=== PATIENT | male | born 1990 | race Caucasian/White ===

== ENCOUNTER 2017-08-26 13:20 | Emergency (ER) | payer OTHER ==
[~2017-08-26] VITALS: Ht 193 cm; Wt 90.9 kg
[2017-08-26 13:24] VITALS: TEMP 36.6; Ht 193 cm; Wt 90.9 kg
[2017-08-26] MEDS ORDERED: LIDOCAINE HCL 2% VISC SOLN 20 ML UDC MT STA (13:42)
[2017-08-26] MEDS ORDERED: SODIUM CHLORIDE 0.9% 1000ML 1,000 ML IV STA (13:42)
[2017-08-26] MEDS ORDERED: ONDANSETRON INJ 2 MG/ML 2 ML VIAL IV STA ×2 (13:42→15:15)
[2017-08-26] MEDS ORDERED: MoRPHine SULFATE 2 MG/ML CARP IV STA (13:42)
[2017-08-26] MEDS ORDERED: SODIUM CHLORIDE 0.9% 1000ML 1,000 ML IV ONE (13:42)
[2017-08-26] MEDS ORDERED: ALUMINUM/MAGNESIUM SUSP 30 ML UDC PO STA (13:42)
--- NOTE | 2017-08-26 13:48 | EMERGENCY ROOM VISIT NOTE ---
History Report prepared by Lenny: Abebe Wagner Under the Supervision of: Dr. Erasmo Moore M.D. First contact with patient: 13:30 Chief Complaint: GI ASSESSMENT Stated Complaint: ABD PAIN, VOMITING,BLOOD IN VOMIT Nursing Triage Summary: pt reports vomitting blood and has 10/10 upper abd pain. pt reports he was on ompeprazole but stopped taking it for awhile and then started taking it again. History of Present Illness The patient is a 26 year old male who presents to the Emergency Room with complaints of constant epigastric pain beginning a couple of days ago. He rates his pain as a 10/10 in severity. The patient states he has a history of peptic ulcers and H. pylori. He reports he has had four endoscopies which showed three different ulcers. The patient is accompanied by his friend who states the patient has not been taking PPIs because he has not had a prescription for a while. He reports he has not been to a physician in a while. The patient states he has been experiencing epigastric pain for the last couple of days. The patient's friend states the patient was driving here to help her move and was vomiting blood the whole way. He notes he has also been experiencing blood in his stool. The patient states whenever he goes to stand up he becomes lightheaded and dizzy. The patient states he has been taking Ibuprofen for his symptoms without any relief. He denies chest pain and shortness of breath. The patient reports a history of a nephrectomy. Source of History: patient Onset: a couple of days ago Position: abdomen (epigastric) Symptom Intensity: 10/10 Timing: constant Modifying Factors (Relieving): ibuprofen Associated Symptoms: + vomiting (blood), No chest pain, No SOB Note: Associated symptoms: blood in stool, lightheaded and dizzy when standing up. Review of Systems See HPI for pertinent positives & negatives. A total of 10 systems reviewed and were otherwise negative. Past Medical & Surgical Medical Problems: (1) H. pylori infection (2) Stomach ulcer Surgical Problems: (1) S/p nephrectomy Old medical records were reviewed. Nurse's notes were reviewed and I agree with. Family History Patient reports no known family medical history. Social History Smoking Status: Never Smoker Marital Status: single Occupation Status: employed Current/Historical Medications Scheduled Omeprazole (Prilosec), 20 MG PO DAILY Omeprazole (Prilosec), 1 CAP PO DAILY Ranitidine (Zantac), 150 MG PO BID Allergies Coded Allergies: Amoxicillin (Verified Adverse Reaction, Severe, HIGH FEVER, 08/26/17) Physical Exam Vital Signs Date Time Temp Pulse Resp B/P (MAP) Pulse Ox O2 Delivery O2 Flow Rate FiO2 08/26/17 16:52 64 16 143/78 100 Room Air 08/26/17 15:41 61 16 147/87 100 Room Air 08/26/17 14:19 63 18 121/75 100 Room Air 08/26/17 13:24 36.6 87 22 137/92 100 Room Air Physical Exam General: Uncomfortable appearing middle aged male complaining of abdominal pain. HEENT: Normal cephalic atraumatic. Pupils are equal round and reactive to light. Extraocular movements are intact. Oropharynx is pink with moist mucous membranes. No swelling of the mouth lips or tongue. Neck: Supple with a midline trachea. No meningeal signs or stiffness, no JVD or bruits. No Stridor. Chest: Clear to auscultation bilaterally. No wheezes or rhonchi. No increased work of breathing. Heart: regular rate and rhythm. Abdomen: Soft, epigastric abdominal pain, nondistended without rebound guarding or rigidity. Extremities: No cyanosis clubbing or edema. No calf tenderness or assymetry Spine/Back. Non tender to palpation. No CVA tenderness Skin: Good turgor without rashes. Neurologic exam: Cranial nerves two through 12 are intact. Motor and sensation are intact and symmetrical throughout. Medical Decision & Procedures ER Provider Diagnostic Interpretation: Radiology results as stated below per my review and radiologist interpretation: CHEST ONE VIEW PORTABLE HISTORY: 26 years-old Male CHEST PAIN acute atypical chest pain COMPARISON: None available TECHNIQUE: Portable AP view of the chest FINDINGS: Cardiomediastinal and hilar silhouettes are within normal limits. No pneumothorax, pleural effusion, focal airspace consolidation or overt pulmonary edema. Mild levoscoliosis of the upper thoracic spine. The bones of the chest appear grossly intact. IMPRESSION: No acute process. The above report was generated using voice recognition software. It may contain grammatical, syntax or spelling errors. Electronically signed by: Harvey Vegas M.D. 08/26/2017 2:35 PM Dictated Date/Time: 08/26/2017 2:34 PM ABDOMEN AND PELVIS CT WITH IV CONTRAST CT DOSE: 401.43 mGy.cm HISTORY: Acute epigastric abdominal pain with vomiting eval for epigastric pain and vomiting TECHNIQUE: Multiaxial CT images of the abdomen and pelvis were performed following the use of intravenous contrast. A dose lowering technique was utilized adhering to the principles of ALARA. COMPARISON STUDY: None. FINDINGS: Lung bases are generally clear. There is no pneumatosis or pneumoperitoneum identified. Imaged inferior cardiac chambers are unremarkable. Gallbladder, liver, spleen, pancreas and adrenal glands are within normal limits. Kidneys, ureters and bladder are unremarkable. Aorta is normal in course and caliber without aneurysm. No bulky adenopathy. Prior appendectomy without evidence of bowel obstruction. Partial distention involves the majority of the colon without pericolonic inflammatory changes to suggest acute colitis. No mesenteric inflammatory changes or ascites. Soft tissues are unremarkable. 9 mm bone island of the right femoral neck. Bones appear intact. IMPRESSION: 1. No acute intra-abdominal or intrapelvic abnormality identified. 2. Prior appendectomy. Electronically signed by: Harvey Vegas M.D. 08/26/2017 3:50 PM Dictated Date/Time: 08/26/2017 3:46 PM Laboratory Results 08/26/17 13:55 Red Blood Count 5.51, Mean Corpuscular Volume 80.0, Mean Corpuscular Hemoglobin 28.9, Mean Corpuscular Hemoglobin Concent 36.1, Mean Platelet Volume 10.6, Neutrophils (%) (Auto) 78.2, Lymphocytes (%) (Auto) 14.5, Monocytes (%) (Auto) 6.6, Eosinophils (%) (Auto) 0.1, Basophils (%) (Auto) 0.1, Neutrophils # (Auto) 10.70, Lymphocytes # (Auto) 1.99, Monocytes # (Auto) 0.90, Eosinophils # (Auto) 0.02, Basophils # (Auto) 0.02 08/26/17 13:55 Test 08/26/17 13:55 White Blood Count 13.70 K/uL (4.8-10.8) Red Blood Count 5.51 M/uL (4.7-6.1) Hemoglobin 15.9 g/dL (14.0-18.0) Hematocrit 44.1 % (42-52) Mean Corpuscular Volume 80.0 fL (80-100) Mean Corpuscular Hemoglobin 28.9 pg (25-34) Mean Corpuscular Hemoglobin Concent 36.1 g/dl (32-36) Platelet Count 248 K/uL (130-400) Mean Platelet Volume 10.6 fL (7.4-10.4) Neutrophils (%) (Auto) 78.2 % Lymphocytes (%) (Auto) 14.5 % Monocytes (%) (Auto) 6.6 % Eosinophils (%) (Auto) 0.1 % Basophils (%) (Auto) 0.1 % Neutrophils # (Auto) 10.70 K/uL (1.4-6.5) Lymphocytes # (Auto) 1.99 K/uL (1.2-3.4) Monocytes # (Auto) 0.90 K/uL (0.11-0.59) Eosinophils # (Auto) 0.02 K/uL (0-0.5) Basophils # (Auto) 0.02 K/uL (0-0.2) RDW Standard Deviation 41.4 fL (36.4-46.3) RDW Coefficient of Variation 14.3 % (11.5-14.5) Immature Granulocyte % (Auto) 0.5 % Immature Granulocyte # (Auto) 0.07 K/uL (0.00-0.02) Anion Gap 6.0 mmol/L (3-11) Est Creatinine Clear Calc Drug Dose 133.3 ml/min Estimated GFR () 115.1 Estimated GFR (Non- 99.3 BUN/Creatinine Ratio 13.1 (10-20) Calcium Level 9.2 mg/dl (8.5-10.1) Total Bilirubin 0.7 mg/dl (0.2-1) Direct Bilirubin 0.2 mg/dl (0-0.2) Aspartate Amino Transf (AST/SGOT) 25 U/L (15-37) Alanine Aminotransferase (ALT/SGPT) 74 U/L (12-78) Alkaline Phosphatase 123 U/L (45-117) Total Protein 8.0 gm/dl (6.4-8.2) Albumin 4.2 gm/dl (3.4-5.0) Lipase 252 U/L (73-393) Laboratory studies as stated above per my review. Medications Administered Medications (Trade) Dose Ordered Sig/Sandra Route Start Time Stop Time Status Last Admin Dose Admin Al Hydroxide/Mg Hydroxide (Maalox Susp) 30 ml NOW STAT PO 08/26/17 13:42 08/26/17 13:44 DC 08/26/17 13:54 30 ML Lidocaine HCl (Viscous Lidocaine 2% Soln) 10 ml NOW STAT MT 08/26/17 13:42 08/26/17 13:44 DC 08/26/17 13:54 10 ML Sodium Chloride 1,000 ml @ 999 mls/hr Q1H1M STAT IV 08/26/17 13:42 08/26/17 14:42 DC 08/26/17 13:54 999 MLS/HR Ondansetron HCl (Zofran Inj) 4 mg NOW STAT IV 08/26/17 13:42 08/26/17 13:44 DC 08/26/17 13:54 4 MG Morphine Sulfate (MoRPHine SULFATE INJ) 2 mg NOW STAT IV 08/26/17 13:42 08/26/17 13:44 DC 08/26/17 13:54 2 MG Morphine Sulfate (MoRPHine SULFATE INJ) 4 mg NOW STAT IV 08/26/17 14:15 08/26/17 14:16 DC 08/26/17 14:18 4 MG Morphine Sulfate (MoRPHine SULFATE INJ) 4 mg NOW STAT IV 08/26/17 14:56 08/26/17 14:57 DC 08/26/17 15:09 4 MG Ondansetron HCl (Zofran Inj) 4 mg NOW STAT IV 08/26/17 15:15 08/26/17 15:16 DC 08/26/17 15:15 4 MG Oxycodone HCl (Roxicodone Immediate Rel 5MG Home Pack) 1 homepack UD ONCE PO 08/26/17 16:45 08/26/17 16:46 DC 08/26/17 16:52 1 HOMEPACK Morphine Sulfate (MoRPHine SULFATE INJ) 4 mg NOW STAT IV 08/26/17 16:32 08/26/17 16:33 DC 08/26/17 16:52 4 MG ED Course 1338: Past medical records reviewed. The patient was evaluated in room C01B, and a complete history and physical examination were performed. 1342: Ordered Morphine Sulfate 2 mg IV, Zofran Injection 4 mg IV, Sodium Chloride 1000 ml @ 200 mls/hr IV, Sodium Chloride 1000 ml @ 999 mls/hr IV, Lidocaine HCl 10 ml MT, Maalox Susp 30 ml PO. 1414: I reevaluated the patient and he seems more comfortable. He is still in pain so I will order Morphine. 1415: Ordered Morphine Sulfate 4 mg IV. 1456: Ordered Morphine Sulfate 4 mg IV. 1459: I reevaluated the patient and he is still in pain. 1515: Ordered Zofran Injection 4 mg IV. 1632: Ordered Morphine Sulfate 4 mg IV. 1629: Upon reevaluation, the patient is resting comfortably. I discussed the results and treatment plan with the patient. He verbalized agreement of the treatment plan. The patient was discharged home. 1645: Ordered Oxycodone HCl 1 homepack PO. Medical Decision Differentials include, but are not limited to; PUD, cardiac disease, anemia, electrolyte or metabolic abnormality, and pancreatitis. This patient comes in as described above. He was placed in room C1. He has had vomiting and says he has been vomiting blood. He has a history of peptic ulcer disease and stopped taking his proton pump inhibitor. he appears uncomfortable. on exam he has some mild tenderness without peritonitis. He is hemodynamically stable. IV access established and he was hydrated with IV normal saline. He was given a GI cocktail as well as IV Zofran and IV morphine. He is not driving. Multiple blood testing was obtained. He was reassessed frequently. He did require some additional dosages of IV morphine. His white count is moderately elevated but his hemoglobin is normal in the 15 range. I saw him vomit here and was nonbloody. He has no peritonitis with his ongoing pain. I did do a CAT scan of his abdomen is unremarkable there is no bowel obstruction or acute findings. He has no acute electrolyte or metabolic abnormalities. I think this most likely is related to his gastritis and/or peptic ulcer disease. I will put him back on his omeprazole was given a prescription he also asked for a prescription for Zantac which was also given. I gave him a home pack of OxyIR just for the next 24 hours. He should return if : increasing pain or bleeding, worsening symptoms, fever chills, any new problems or concerns. He is happy with the plan and discharged to home. Medication Reconcilliation Current Medication List: was personally reviewed by me Blood Pressure Screening Patient's blood pressure: Normal blood pressure Impression Primary Impression: Epigastric abdominal pain Additional Impressions: Gastritis Hematemesis Scribe Attestation The scribe's documentation has been prepared under my direction and personally reviewed by me in its entirety. I confirm that the note above accurately reflects all work, treatment, procedures, and medical decision making performed by me. Departure Information Dispostion Home / Self-Care Prescriptions Ranitidine (Zantac) 150 Mg Tab 150 MG PO BID for 90 Days, #180 TAB Prov: Erasmo Moore M.D. 08/26/17 Omeprazole (PRILOSEC) 40 Mg Cap 1 CAP PO DAILY for 90 Days, #90 CAP 3 Refills Prov: Erasmo Moore M.D. 08/26/17 Referrals No Doctor, Assigned (PCP) Forms HOME CARE DOCUMENTATION FORM, IMPORTANT VISIT INFORMATION Patient Instructions [facility] Additional Instructions Rest. Mild diet. Drink plenty of fluids. Use Prilosec 40 mg a day-prescription given May also use Zantac 150 mg twice a day-prescription given For pain this evening may use OxyIR 5 mg, 1 pill every 6 hours as needed OxyIR may make you drowsy and do not take before drinking, driving, working Return if increasing pain, worsening symptoms, further blood in the stool or vomit, any new problems or concerns Follow-up with your doctor this week for recheck with the next couple days Problem Qualifiers
[2017-08-26 14:11] LABS: BASO % 0.1 %; BASO ABS # 0.02 K/uL (0-0.2); EOS % 0.1 %; EOS ABS # 0.02 K/uL (0-0.5); HEMATOCRIT 44.1 % (42-52); HEMOGLOBIN 15.9 g/dL (14.0-18.0); IG# 0.07 K/uL (0.00-0.02); LYMPH % 14.5 %; LYMPH ABS # 1.99 K/uL (1.2-3.4); MEAN CORPUSCULAR HEMOGLOBIN 28.9 pg (25-34); MEAN CORPUSCULAR HGB CONC 36.1 g/dl (32-36); MEAN PLATELET VOLUME 10.6 fL (7.4-10.4); MONO % 6.6 %; NEUT % 78.2 %; PLATELET COUNT 248 K/uL (130-400); RED CELL DISTRIBUTION WIDTH CV 14.3 % (11.5-14.5); RED CELL DISTRIBUTION WIDTH SD 41.4 fL (36.4-46.3)
[2017-08-26] MEDS ORDERED: PRLSR20 PO (14:15)
[2017-08-26] MEDS ORDERED: MoRPHine SULFATE 4 MG/ML 1 ML CARP\\VIAL IV STA ×3 (14:15→16:32)
[2017-08-26 14:32] LABS: ALBUMIN 4.2 gm/dl (3.4-5.0); CALCIUM 9.2 mg/dl (8.5-10.1); CREATININE 1.04 mg/dl (0.60-1.40); POTASSIUM 3.4 mmol/L (3.5-5.1)
--- NOTE | 2017-08-26 14:37 | DIAGNOSTIC IMAGING REPORT ---
CHEST ONE VIEW PORTABLE HISTORY: 26 years-old Male CHEST PAIN acute atypical chest pain COMPARISON: None available TECHNIQUE: Portable AP view of the chest FINDINGS: Cardiomediastinal and hilar silhouettes are within normal limits. No pneumothorax, pleural effusion, focal airspace consolidation or overt pulmonary edema. Mild levoscoliosis of the upper thoracic spine. The bones of the chest appear grossly intact. IMPRESSION: No acute process. The above report was generated using voice recognition software. It may contain grammatical, syntax or spelling errors. Electronically signed by: Harvey Vegas M.D. 08/26/2017 2:35 PM Dictated Date/Time: 08/26/2017 2:34 PM
[2017-08-26] MEDS ORDERED: OPTIRAY 320 IV PRN (15:00)
--- NOTE | 2017-08-26 15:52 | DIAGNOSTIC IMAGING REPORT ---
ABDOMEN AND PELVIS CT WITH IV CONTRAST CT DOSE: 401.43 mGy.cm HISTORY: Acute epigastric abdominal pain with vomiting eval for epigastric pain and vomiting TECHNIQUE: Multiaxial CT images of the abdomen and pelvis were performed following the use of intravenous contrast. A dose lowering technique was utilized adhering to the principles of ALARA. COMPARISON STUDY: None. FINDINGS: Lung bases are generally clear. There is no pneumatosis or pneumoperitoneum identified. Imaged inferior cardiac chambers are unremarkable. Gallbladder, liver, spleen, pancreas and adrenal glands are within normal limits. Kidneys, ureters and bladder are unremarkable. Aorta is normal in course and caliber without aneurysm. No bulky adenopathy. Prior appendectomy without evidence of bowel obstruction. Partial distention involves the majority of the colon without pericolonic inflammatory changes to suggest acute colitis. No mesenteric inflammatory changes or ascites. Soft tissues are unremarkable. 9 mm bone island of the right femoral neck. Bones appear intact. IMPRESSION: 1. No acute intra-abdominal or intrapelvic abnormality identified. 2. Prior appendectomy. Electronically signed by: Harvey Vegas M.D. 08/26/2017 3:50 PM Dictated Date/Time: 08/26/2017 3:46 PM
[2017-08-26] MEDS ORDERED: OXYCODONE IR HOME PACK PO ONE (16:45)
[2017-08-26] MEDS ORDERED: RANI150T85 PO (16:49)
[2017-08-26] MEDS ORDERED: OMEP40CA41 PO (16:49)
[2017-08-26 16:52] VITALS: BP 143/78; PULSE 64; O2SAT 100
== END 2017-08-26 17:03 | disposition home or self-care (01) ==
LOC: C.EDB 13:22 → C.EDC 17:03
DX: K29.71 Gastritis, unspecified, with bleeding (principal); Z90.5 Acquired absence of kidney; Z79.899 Other long term (current) drug therapy; Z88.0 Allergy status to penicillin